=== PATIENT | female | born 1990 | race American Indian/Alaskan Native ===

== ENCOUNTER 2016-11-08 10:05 | Emergency (ER) | payer MEDICAID ==
[2016-11-08] MEDS ORDERED: ZOFRAN IV ONE (11:36)
[2016-11-08] MEDS ORDERED: NACL 0.9% 1000 ML 1,000 ML IV ONE (11:36)
[2016-11-08 11:43] LABS: Basophils % (Auto) 0.4 % (0.0-1.8); Eosinophils % (Auto) 1.5 % (0.0-4.3); Hematocrit 43.2 % (30.3-42.9); Hemoglobin 14.6 gm/dl (10.1-14.3); Mean Corpuscular HGB Conc 34 % (30-34); Mean Corpuscular Hemoglobin 31 pg (28-32); Mean Corpuscular Volume 92 fl (79-97); Platelet Count 193 K/mm3 (140-440); Red Cell Distribution Width 12.9 % (13.2-15.2); White Blood Count 5.8 K/mm3 (4.5-11.0)
[2016-11-08 11:55] LABS: Anion Gap 21 mmol/L; BUN/Creatinine Ratio 21.66; Blood Urea Nitrogen 13 mg/dL (7-17); Calcium 9.1 mg/dL (8.4-10.2); Carbon Dioxide 21 mmol/L (22-30); Chloride 98.2 mmol/L (98-107); Glucose 98 mg/dL (65-100); Potassium 3.9 mmol/L (3.6-5.0); Sodium 136 mmol/L (137-145)
[2016-11-08] MEDS ORDERED: BENTYL IM ONE (12:04)
[2016-11-08 13:10] LABS: Alanine Aminotransferase 16 units/L (7-56); Albumin 4.4 g/dL (3.9-5); Albumin/Globulin Ratio 1.1 %; Alkaline Phosphatase 49 units/L (35-129); Total Protein 8.4 g/dL (6.3-8.2)
[2016-11-08 13:20] LABS: Bilirubin,Direct < 0.2 mg/dL (0-0.2); Bilirubin,Indirect 0.2 mg/dL
[2016-11-08 13:23] LABS: Bacteria,Urine 1+ /HPF (Negative); Bilirubin,Urine NEG (Negative); Blood,Urine NEG (Negative); Ketones,Urine 80 mg/dL (Negative); Leukocyte Esterase,Urine NEG (Negative); Mucus,Urine 3+ /HPF; Nitrite,Urine NEG (Negative); Urobilinogen,Urine < 2.0 mg/dL (<2.0)
[2016-11-08 14:46] VITALS: BP 122/80
--- NOTE | 2016-11-08 21:18 | Emergency Department Report ---
Entered by FADIA DICK, acting as scribe for ANALIA LOPEZ NP. ED N/V/D HPI - General Chief complaint: Nausea/Vomiting/Diarrhea Stated complaint: DIARHHEA/VOMITTING/CHILLS/NAUSEA Time Seen by Provider: 11/08/16 11:32 Source: patient Mode of arrival: Ambulatory Limitations: No Limitations - History of Present Illness Initial comments: 26 y/o female with no significant PMHx presents to ED c/o nausea, vomiting, diarrhea beginning 2 days ago. Pt denies known sick contact or bad food exposure , as well as recent antibiotic usage. She reports one episode of emesis today and 3 episodes yesterday, as well as continuous diarrhea since yesterday. She denies abdominal pain, noting short episodes of temporary relief from nausea after emesis. Pt also reports dizziness upon standing. Her LMP was October 21, heavier but normal otherwise. Despite administering Pepto Bismol at home, she experienced no relief. Pt has no additional complaints MD complaint: nausea, vomiting, diarrhea Onset/Timin -: Gradual, days(s) Description of Diarrhea: water Associated Abdominal Pain: No Radiation: none Severity: moderate Consistency: constant Improves with: other (slight relief from nausea after vomiting) Associated Symptoms: other (dizziness when standing ) - Related Data Home Medications Medication Instructions Recorded Confirmed Last Taken Pnv95/Ferrous Fumarate/FA 1 each PO QDAY 10/11/14 11/15/14 10/11/14 09:00 [ Vitamins] 1 Previous Rx's Medication Instructions Recorded Last Taken Type Dicyclomine [Bentyl] 20 mg PO QID PRN #8 tablet 11/08/16 Unknown Rx Ondansetron [Zofran Odt] 4 mg PO Q8HR PRN #10 tab.rapdis 11/08/16 Unknown Rx Allergies Allergy/AdvReac Type Severity Reaction Status Date / Time No Known Allergies Allergy Verified 10/11/14 17:59 ED Review of Systems Comment: All other systems reviewed and negative Gastrointestinal: nausea, vomiting, diarrhea. denies: abdominal pain Genitourinary: denies: abnormal menses Neurological: other (dizziness with standing) ED Past Medical Hx - Past Medical History Previous Medical History?: Yes Hx Hypertension: Yes (PIH) Hx Congestive Heart Failure: No Hx Diabetes: No Hx Deep Vein Thrombosis: No Hx Renal Disease: No Hx Sickle Cell Disease: No Hx Seizures: No Hx Asthma: No Hx COPD: No Hx HIV: No - Surgical History Past Surgical History?: No - Social History Smoking Status: Current Every Day Smoker Substance Use Type: Alcohol, Non Opiate Pain, Other - Medications Home Medications: Home Medications Medication Instructions Recorded Confirmed Last Taken Type Pnv95/Ferrous Fumarate/FA 1 each PO QDAY 10/11/14 11/15/14 10/11/14 09:00 History [ Vitamins] 1 Dicyclomine [Bentyl] 20 mg PO QID PRN #8 tablet 11/08/16 Unknown Rx Ondansetron [Zofran Odt] 4 mg PO Q8HR PRN #10 tab.rapdis 11/08/16 Unknown Rx ED Physical Exam - General Limitations: No Limitations General appearance: alert, in no apparent distress - Head Head exam: Present: atraumatic, normocephalic, normal inspection - Eye Eye exam: Present: normal appearance, PERRL, EOMI Pupils: Present: normal accommodation - ENT ENT exam: Present: normal exam, normal orophraynx - Neck Neck exam: Present: normal inspection, full ROM - Respiratory Respiratory exam: Present: normal lung sounds bilaterally. Absent: respiratory distress, wheezes, rales, rhonchi - Cardiovascular Cardiovascular Exam: Present: regular rate, normal rhythm, normal heart sounds - GI/Abdominal GI/Abdominal exam: Present: soft, normal bowel sounds. Absent: distended, tenderness, guarding, rebound - Extremities Exam Extremities exam: Present: normal inspection, full ROM - Back Exam Back exam: Present: normal inspection, full ROM - Neurological Exam Neurological exam: Present: alert, oriented X3, normal gait - Psychiatric Psychiatric exam: Present: normal affect, normal mood - Skin Skin exam: Present: warm, dry, intact, normal color. Absent: rash ED Course Vital Signs 11/08/16 11/08/16 11/08/16 10:30 11:24 14:45 Temperature 98 F 98.6 F Pulse Rate 95 H 76 Respiratory 20 20 16 Rate Blood Pressure 119/76 Blood Pressure 122/80 [Left] O2 Sat by Pulse 100 98 100 Oximetry - Reevaluation(s) Reevaluation #1: 11/08/16 14:16 PT states she is feeling better. PT has tolerated po fluids without vomiting. PT aware of lab results. PT given strict return precautions. PT verbalizes understanding. - Pulse Oximetry Interpretation Digit-Finger Initial Pulse Oximetry Readin Actions Taken: none ED Medical Decision Making - Lab Data Result diagrams: 11/08/16 11:03 11/08/16 11:03 Lab Results 11/08/16 11/08/16 11/08/16 Range/Units 11:03 11:03 11:03 WBC 5.8 (4.5-11.0) K/mm3 RBC 4.70 (3.65-5.03) M/mm3 Hgb 14.6 H (10.1-14.3) gm/dl Hct 43.2 H (30.3-42.9) % MCV 92 (79-97) fl MCH 31 (28-32) pg MCHC 34 (30-34) % RDW 12.9 L (13.2-15.2) % Plt Count 193 (140-440) K/mm3 Lymph % (Auto) 26.1 (13.4-35.0) % [place] % (Auto) 10.4 H (0.0-7.3) % Eos % (Auto) 1.5 (0.0-4.3) % Baso % (Auto) 0.4 (0.0-1.8) % Lymph # 1.5 (1.2-5.4) K/mm3 [place] # 0.6 (0.0-0.8) K/mm3 Eos # 0.1 (0.0-0.4) K/mm3 Baso # 0.0 (0.0-0.1) K/mm3 Seg Neutrophils % 61.6 (40.0-70.0) % Seg Neutrophils # 3.6 (1.8-7.7) K/mm3 Sodium 136 L (137-145) mmol/L Potassium 3.9 (3.6-5.0) mmol/L Chloride 98.2 (98-107) mmol/L Carbon Dioxide 21 L (22-30) mmol/L Anion Gap 21 mmol/L BUN 13 (7-17) mg/dL Creatinine 0.6 L (0.7-1.2) mg/dL Estimated GFR > 60 ml/min BUN/Creatinine Ratio 21.66 % Glucose 98 (65-100) mg/dL Calcium 9.1 (8.4-10.2) mg/dL Total Bilirubin 0.40 (0.1-1.2) mg/dL Direct Bilirubin < 0.2 (0-0.2) mg/dL Indirect Bilirubin 0.2 mg/dL AST 25 (5-40) units/L ALT 16 (7-56) units/L Alkaline Phosphatase 49 (35-129) units/L Total Protein 8.4 H (6.3-8.2) g/dL Albumin 4.4 (3.9-5) g/dL Albumin/Globulin Ratio 1.1 % Urine Color (Yellow) Urine Turbidity (Clear) Urine pH (5.0-7.0) Ur Specific [place] (1.003-1.030) Urine Protein (Negative) mg/dL Urine Glucose (UA) (Negative) mg/dL Urine Ketones (Negative) mg/dL Urine Blood (Negative) Urine Nitrite (Negative) Urine Bilirubin (Negative) Urine Urobilinogen (<2.0) mg/dL Ur Leukocyte Esterase (Negative) Urine WBC (Auto) (0.0-6.0) /HPF Urine RBC (Auto) (0.0-6.0) /HPF U Epithel Cells (Auto) (0-13.0) /HPF Urine Bacteria (Auto) (Negative) /HPF Hyaline Casts /LPF Urine Mucus /HPF Urine HCG, Qual (Negative) 11/08/16 Range/Units 13:04 WBC (4.5-11.0) K/mm3 RBC (3.65-5.03) M/mm3 Hgb (10.1-14.3) gm/dl Hct (30.3-42.9) % MCV (79-97) fl MCH (28-32) pg MCHC (30-34) % RDW (13.2-15.2) % Plt Count (140-440) K/mm3 Lymph % (Auto) (13.4-35.0) % [place] % (Auto) (0.0-7.3) % Eos % (Auto) (0.0-4.3) % Baso % (Auto) (0.0-1.8) % Lymph # (1.2-5.4) K/mm3 [place] # (0.0-0.8) K/mm3 Eos # (0.0-0.4) K/mm3 Baso # (0.0-0.1) K/mm3 Seg Neutrophils % (40.0-70.0) % Seg Neutrophils # (1.8-7.7) K/mm3 Sodium (137-145) mmol/L Potassium (3.6-5.0) mmol/L Chloride (98-107) mmol/L Carbon Dioxide (22-30) mmol/L Anion Gap mmol/L BUN (7-17) mg/dL Creatinine (0.7-1.2) mg/dL Estimated GFR ml/min BUN/Creatinine Ratio % Glucose (65-100) mg/dL Calcium (8.4-10.2) mg/dL Total Bilirubin (0.1-1.2) mg/dL Direct Bilirubin (0-0.2) mg/dL Indirect Bilirubin mg/dL AST (5-40) units/L ALT (7-56) units/L Alkaline Phosphatase (35-129) units/L Total Protein (6.3-8.2) g/dL Albumin (3.9-5) g/dL Albumin/Globulin Ratio % Urine Color Yellow (Yellow) Urine Turbidity Clear (Clear) Urine pH 5.0 (5.0-7.0) Ur Specific [place] 1.033 H (1.003-1.030) Urine Protein 100 mg/dl (Negative) mg/dL Urine Glucose (UA) Neg (Negative) mg/dL Urine Ketones 80 (Negative) mg/dL Urine Blood Neg (Negative) Urine Nitrite Neg (Negative) Urine Bilirubin Neg (Negative) Urine Urobilinogen < 2.0 (<2.0) mg/dL Ur Leukocyte Esterase Neg (Negative) Urine WBC (Auto) 3.0 (0.0-6.0) /HPF Urine RBC (Auto) 2.0 (0.0-6.0) /HPF U Epithel Cells (Auto) 13.0 (0-13.0) /HPF Urine Bacteria (Auto) 1+ (Negative) /HPF Hyaline Casts 1 /LPF Urine Mucus 3+ /HPF Urine HCG, Qual Negative (Negative) - Medical Decision Making PT with 3 days of n/v/d. Diarrhea and vomiting have decreased today. PT has been able to tolerate po fluids. Orthostatic VS were checked, by doubler helper and shown to me pt was not orthostatic. - Differential Diagnosis n/v/d, age, dehydration, electrolye abnormality Critical Care Time: No ED Disposition Clinical Impression: Nausea vomiting and diarrhea Disposition: DISCHARGED TO HOME OR SELFCARE Is pt being admited?: No Does the pt Need Aspirin: No Condition: Stable Instructions: Clear Liquid Diet (ED), Gastroenteritis (ED), Acute Nausea and Vomiting (ED) Prescriptions: Dicyclomine [Bentyl] 20 mg PO QID PRN #8 tablet PRN Reason: Diarrhea Ondansetron [Zofran Odt] 4 mg PO Q8HR PRN #10 tab.rapdis PRN Reason: Nausea Referrals: PRIMARY CARE, [Primary Care Provider] - 3-5 Days EVE FOWLER MD [Staff Physician] - 3-5 Days [facility] [Outside] - 3-5 Days [facility] [Outside] - 3-5 Days Forms: Work/School Release Form(ED) Time of Disposition: 14:24 This documentation as recorded by the KAPIL vallejo AHSAN,accurately reflects the service I personally performed and the decisions made by ,ANALIA LOPEZ, [employer].
== END 2016-11-08 14:45 | disposition home or self-care (01) ==
LOC: ED 10:05
DX: R11.2 Nausea with vomiting, unspecified (principal); R19.7 Diarrhea, unspecified; I10 Essential (primary) hypertension; F17.200 Nicotine dependence, unspecified, uncomplicated
CPT/HCPCS: 36415; 80048; 80074; 81001; 81025; 82962; 85025; 96361; 96372; 96374; 99283; J0500; J2405; J7030

== ENCOUNTER 2017-02-02 05:55 | Emergency (ER) | payer SELFPAY ==
[2017-02-02 06:52] LABS: Basophils % (Auto) 0.3 % (0.0-1.8); Eosinophils % (Auto) 1.1 % (0.0-4.3); Hematocrit 37.2 % (30.3-42.9); Hemoglobin 12.7 gm/dl (10.1-14.3); Mean Corpuscular HGB Conc 34 % (30-34); Mean Corpuscular Hemoglobin 31 pg (28-32); Mean Corpuscular Volume 91 fl (79-97); Platelet Count 203 K/mm3 (140-440); Red Blood Count 4.09 M/mm3 (3.65-5.03); Red Cell Distribution Width 12.7 % (13.2-15.2); White Blood Count 6.7 K/mm3 (4.5-11.0)
[2017-02-02 07:34] LABS: Bilirubin,Urine NEG (Negative); Blood,Urine MOD (Negative); Ketones,Urine NEG (Negative); Leukocyte Esterase,Urine NEG (Negative); Nitrite,Urine NEG (Negative); Protein,Urine <15 mg/dL mg/dL (Negative); Urobilinogen,Urine < 2.0 mg/dL (<2.0)
--- NOTE | 2017-02-02 10:36 | Emergency Department Report ---
ED Female HPI - General Chief complaint: Vaginal Bleeding Stated complaint: BLEEDING/5WKS Time Seen by Provider: 02/02/17 10:30 Source: patient, RN notes reviewed Mode of arrival: Ambulatory Limitations: No Limitations - History of Present Illness Initial comments: This is a 27-year-old female. She is previously unknown to me. She reports that she is 3, para 2. Last menstrual period was in December. She reports a positive home test, and a subsequent presents with [facility], and was also told that she had a positive urine test. The patient presents to the ER with lower abdominal cramping and vaginal bleeding. There is no headache, neck pain, chest pain, shortness of breath, nausea, vomiting, diarrhea, she denies irritative and obstructive urinary symptoms. She reports a cramping and bleeding started this morning. The cramping is sharp. It increases with palpation and decreases with rest. It does not radiate anywhere. MD Complaint: vaginal bleeding, pelvic pain -: Gradual Location: suprapubic Quality: cramping Consistency: intermittent Improves with: other (as per history of present illness) Worsens with: other (as per history of present illness) Associated Symptoms: vaginal bleeding. denies: dysuria - Related Data Sexually active: Yes Home Medications Medication Instructions Recorded Confirmed Last Taken No Known Home Medications [No 02/02/17 02/02/17 Unknown Reported Home Medications] Allergies Allergy/AdvReac Type Severity Reaction Status Date / Time No Known Allergies Allergy Verified 10/11/14 17:59 ED Review of Systems ROS: Stated complaint: BLEEDING/5WKS Other details as noted in HPI Constitutional: denies: fever Eyes: denies: eye discharge ENT: denies: epistaxis Respiratory: denies: cough Cardiovascular: denies: chest pain Gastrointestinal: denies: vomiting Genitourinary: as per HPI, abnormal menses Musculoskeletal: denies: back pain Skin: denies: lesions Neurological: denies: weakness ED Past Medical Hx - Past Medical History Previous Medical History?: Yes Hx Hypertension: Yes (with last preg) Hx Congestive Heart Failure: No Hx Diabetes: No Hx Deep Vein Thrombosis: No Hx Renal Disease: No Hx Sickle Cell Disease: No Hx Seizures: No Hx Asthma: No Hx COPD: No Hx HIV: No - Surgical History Past Surgical History?: No - Social History Smoking Status: Never Smoker Substance Use Type: None - Medications Home Medications: Home Medications Medication Instructions Recorded Confirmed Last Taken Type No Known Home Medications [No 02/02/17 02/02/17 Unknown History Reported Home Medications] ED Physical Exam - General Limitations: No Limitations General appearance: alert, in no apparent distress - Head Head exam: Present: atraumatic, normocephalic - Eye Eye exam: Present: normal appearance, EOMI. Absent: nystagmus - ENT ENT exam: Present: normal exam, normal orophraynx, mucous membranes moist, normal external ear exam - Neck Neck exam: Present: normal inspection, full ROM. Absent: tenderness, meningismus - Respiratory Respiratory exam: Present: normal lung sounds bilaterally. Absent: respiratory distress, wheezes, rales, rhonchi, stridor, chest wall tenderness, accessory muscle use, decreased breath sounds, prolonged expiratory - Cardiovascular Cardiovascular Exam: Present: regular rate, normal rhythm, normal heart sounds. Absent: bradycardia, tachycardia, systolic murmur, diastolic murmur, rubs, gallop - GI/Abdominal GI/Abdominal exam: Present: soft, normal bowel sounds. Absent: distended, tenderness, guarding, rebound, rigid, pulsatile mass - External exam: Present: normal external exam Speculum exam: Present: normal speculum exam, vaginal bleeding. Absent: cervical discharge Bi-manual exam: Present: normal bi-manual exam, other (escorted by nurse Morelia Massey). Absent: cervical motion tendernes, adnexal tenderness, adnexal mass - Extremities Exam Extremities exam: Present: normal inspection, full ROM, normal capillary refill. Absent: tenderness, pedal edema, joint swelling, calf tenderness - Back Exam Back exam: Present: normal inspection, full ROM. Absent: tenderness, CVA tenderness (R), CVA tenderness (L), muscle spasm, paraspinal tenderness, vertebral tenderness - Neurological Exam Neurological exam: Present: alert, oriented X3, normal gait, other (Extraocular movements intact. Tongue midline. No facial droop. Facial sensation intact to light touch in the V1, V2, V3 distribution bilaterally. 5 and 5 strength in 4 extremities.. Sensation is intact to light touch in 4 extremities.). Absent : motor sensory deficit - Psychiatric Psychiatric exam: Present: normal affect, normal mood - Skin Skin exam: Present: warm, dry, intact, normal color. Absent: rash ED Course Vital Signs 02/02/17 02/02/17 02/02/17 06:23 09:58 10:04 Temperature 97.9 F Pulse Rate 88 88 Respiratory 18 16 16 Rate Blood Pressure 128/84 Blood Pressure 118/78 [Left] O2 Sat by Pulse 100 100 100 Oximetry 02/02/17 12:29 Temperature Pulse Rate 65 Respiratory 18 Rate Blood Pressure Blood Pressure 120/68 [Left] O2 Sat by Pulse 100 Oximetry - Reevaluation(s) Reevaluation #1: 02/02/17 12:24 patient feels improved. Pelvic ultrasound negative for an intra uterine as expected. Clinical picture consistent with miscarriage. Patient is instructed to follow up with outpatient gynecology. Given her history, ultrasound findings, quantitative hCG, patient is suitable to follow- up as an outpatient, and I dont believe she needs to come back in 2 days for repeat ultrasound or hCG. 02/05/17 05:54 ED Medical Decision Making - Lab Data Result diagrams: 02/02/17 06:31 Vital Signs 02/02/17 02/02/17 02/02/17 06:23 09:58 10:04 Temperature 97.9 F Pulse Rate 88 88 Respiratory 18 16 16 Rate Blood Pressure 128/84 Blood Pressure 118/78 [Left] O2 Sat by Pulse 100 100 100 Oximetry Lab Results 02/02/17 02/02/17 02/02/17 Range/Units 06:31 06:31 06:31 WBC 6.7 (4.5-11.0) K/mm3 RBC 4.09 (3.65-5.03) M/mm3 Hgb 12.7 (10.1-14.3) gm/dl Hct 37.2 (30.3-42.9) % MCV 91 (79-97) fl MCH 31 (28-32) pg MCHC 34 (30-34) % RDW 12.7 L (13.2-15.2) % Plt Count 203 (140-440) K/mm3 Lymph % (Auto) 31.0 (13.4-35.0) % [place] % (Auto) 5.4 (0.0-7.3) % Eos % (Auto) 1.1 (0.0-4.3) % Baso % (Auto) 0.3 (0.0-1.8) % Lymph # 2.1 (1.2-5.4) K/mm3 [place] # 0.4 (0.0-0.8) K/mm3 Eos # 0.1 (0.0-0.4) K/mm3 Baso # 0.0 (0.0-0.1) K/mm3 Seg Neutrophils % 62.2 (40.0-70.0) % Seg Neutrophils # 4.2 (1.8-7.7) K/mm3 HCG, Quant 1.40 (0-4) mIU/mL Urine Color (Yellow) Urine Turbidity (Clear) Urine pH (5.0-7.0) Ur Specific [place] (1.003-1.030) Urine Protein (Negative) mg/dL Urine Glucose (UA) (Negative) mg/dL Urine Ketones (Negative) mg/dL Urine Blood (Negative) Urine Nitrite (Negative) Urine Bilirubin (Negative) Urine Urobilinogen (<2.0) mg/dL Ur Leukocyte Esterase (Negative) Urine WBC (Auto) (0.0-6.0) /HPF Urine RBC (Auto) (0.0-6.0) /HPF U Epithel Cells (Auto) (0-13.0) /HPF Blood Type A POSITIVE Antibody Screen TNR PRO Antibody Screen Negative 02/02/17 Range/Units 07:18 WBC (4.5-11.0) K/mm3 RBC (3.65-5.03) M/mm3 Hgb (10.1-14.3) gm/dl Hct (30.3-42.9) % MCV (79-97) fl MCH (28-32) pg MCHC (30-34) % RDW (13.2-15.2) % Plt Count (140-440) K/mm3 Lymph % (Auto) (13.4-35.0) % [place] % (Auto) (0.0-7.3) % Eos % (Auto) (0.0-4.3) % Baso % (Auto) (0.0-1.8) % Lymph # (1.2-5.4) K/mm3 [place] # (0.0-0.8) K/mm3 Eos # (0.0-0.4) K/mm3 Baso # (0.0-0.1) K/mm3 Seg Neutrophils % (40.0-70.0) % Seg Neutrophils # (1.8-7.7) K/mm3 HCG, Quant (0-4) mIU/mL Urine Color Yellow (Yellow) Urine Turbidity Clear (Clear) Urine pH 7.0 (5.0-7.0) Ur Specific [place] 1.013 (1.003-1.030) Urine Protein <15 mg/dl (Negative) mg/dL Urine Glucose (UA) Neg (Negative) mg/dL Urine Ketones Neg (Negative) mg/dL Urine Blood Mod (Negative) Urine Nitrite Neg (Negative) Urine Bilirubin Neg (Negative) Urine Urobilinogen < 2.0 (<2.0) mg/dL Ur Leukocyte Esterase Neg (Negative) Urine WBC (Auto) 1.0 (0.0-6.0) /HPF Urine RBC (Auto) 24.0 (0.0-6.0) /HPF U Epithel Cells (Auto) < 1.0 (0-13.0) /HPF Blood Type Antibody Screen PRO Antibody Screen - Radiology Data Radiology results: pending, report reviewed Transvaginal ultrasound demonstrates no evidence of intrauterine . No evidence of ovarian torsion is noted. The endometrial stripe is 8 mm. This most likely represents a spontaneous . There is a 1.7 cm right-sided ovarian cyst which is most consistent with a corpus luteum cyst. - Medical Decision Making Differential diagnosis: Miscarriage, retained products of conception, menstruation Assessment and plan: 27-year-old female with reported to outpatient positive test, current quantitative hCG of 1.4, with no abdominal tenderness, rebound or guarding, she is Rh+, denies irritative and obstructive urinary symptoms, and has a benign gynecologic abdominal examination. She most likely had a miscarriage. She is afebrile, with reassuring vital signs. highly doubt acute surgical disease, we will obtain pelvic ultrasound to exclude retained products of conception. Critical care attestation.: If time is entered above; I have spent that time in minutes in the direct care of this critically ill patient, excluding procedure time. ED Disposition Clinical Impression: Vaginal bleeding Disposition: TO HOME OR SELFCARE Is pt being admited?: No Does the pt Need Aspirin: No Condition: Stable Instructions: Spontaneous Miscarriage (ED) Additional Instructions: Rest and avoid heavy lifting. Avoid strenuous physical activity. Take Tylenol every 4 hours, and ibuprofen every 6 hours with food as needed for pain. Cultures were sent today, results will be available in the next 3-5 days. Follow-up with her managing jeweler within the next 7-10 days. Do not engage in sexual activity until cleared by your private managing jeweler. Symptoms most likely coming from complete miscarriage. Return to the ER right away with new pain, worsened pain, migration of pain, bleeding more than 2 pads per hour, dizziness, lightheadedness, chest pain, shortness of breath, confusion , intractable nausea or vomiting, inability to tolerate liquid feeds. Referrals: PRIMARY CARE, [Primary Care Provider] - 3-5 Days [facility] [Provider Group] - 3-5 Days Forms: Work/School Release Form(ED)
[2017-02-02] MEDS ORDERED: TYLENOL PO ONE (10:42)
--- NOTE | 2017-02-02 12:21 | Ultrasound Report ---
ULTRASOUND PELVIC DUPLEX DOPPLER COMPLETE ULTRASOUND TRANSVAGINAL HISTORY: Pelvic pain, bleeding, positive test. TECHNIQUE: Transabdominal and transvaginal ultrasound with color and spectral doppler interrogation. The uterus is anteverted and measures 11 x 5 x 6 cm. No intrauterine is identified. The endometrial stripe measures 8 mm. The cervix is closed. No uterine mass is appreciated. The right ovary measures 3.5 x 1.8 x 4.7 cm. A 1.7 cm slightly complex cyst is identified in the right ovary which probably represents a corpus luteum cyst. The left ovary is unremarkable and measures 3.1 x 1.6 x 2.7 cm. Spectral Doppler waveforms demonstrate arterial flow to both ovaries. IMPRESSION: No intrauterine is identified. The endometrial stripe measures 8 mm. This probably represents a spontaneous . 1.7 cm right ovarian cyst which is most consistent with a corpus luteum cyst. No definite ectopic is appreciated although it is not entirely excluded at this time. Continued followup is recommended.
[2017-02-02 12:30] VITALS: BP 120/68
== END 2017-02-02 12:30 | disposition home or self-care (01) ==
LOC: ED 05:55
DX: O20.9 Hemorrhage in early pregnancy, unspecified (principal); Z3A.01 Less than 8 weeks gestation of pregnancy
CPT/HCPCS: 36415; 76830; 81001; 84702; 85025; 86850; 86900; 86901; 87591; 93975

== ENCOUNTER 2017-03-26 22:23 | Emergency (ER) | payer OTHER, MEDICAID ==
[2017-03-26] MEDS ORDERED: TORADOL IV ONE (23:06)
[2017-03-26] MEDS ORDERED: NACL 0.9% 1000 ML 1,000 ML IV ONE (23:06)
[2017-03-26 23:38] LABS: Basophils % (Auto) 0.4 % (0.0-1.8); Eosinophils % (Auto) 1.3 % (0.0-4.3); Hematocrit 38.2 % (30.3-42.9); Hemoglobin 12.8 gm/dl (10.1-14.3); Mean Corpuscular HGB Conc 34 % (30-34); Mean Corpuscular Hemoglobin 31 pg (28-32); Mean Corpuscular Volume 91 fl (79-97); Platelet Count 209 K/mm3 (140-440); Red Blood Count 4.18 M/mm3 (3.65-5.03); Red Cell Distribution Width 12.9 % (13.2-15.2); White Blood Count 9.1 K/mm3 (4.5-11.0)
[2017-03-26 23:57] LABS: Anion Gap 18 mmol/L; Blood Urea Nitrogen 9 mg/dL (7-17); Carbon Dioxide 25 mmol/L (22-30); Chloride 97.9 mmol/L (98-107); Glucose 94 mg/dL (65-100); Potassium 3.9 mmol/L (3.6-5.0); Sodium 137 mmol/L (137-145)
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
[2017-03-27] MEDS ORDERED: MORPHINE IV ONE (02:27)
[2017-03-27] MEDS ORDERED: MORPHINE ONE (02:32)
[2017-03-27] MEDS ORDERED: ZOFRAN ONE (02:32)
[2017-03-27] MEDS: ZOFRAN IV ONE ×2 (02:41→04:38)
[2017-03-27 02:56] VITALS: BP 110/60
== END 2017-03-27 04:00 | disposition home or self-care (01) ==
LOC: ED 22:23
DX: R55 Syncope and collapse (principal); R42 Dizziness and giddiness; M79.1 Myalgia; V49.49XA Driver injured in collision with other motor vehicles in traffic accident, initial encounter; X58.XXXA Exposure to other specified factors, initial encounter; Y93.9 Activity, unspecified; Y92.9 Unspecified place or not applicable; Y99.9 Unspecified external cause status
CPT/HCPCS: 36415; 70450; 72125; 74177; 80048; 84702; 85025; 93005; 93010; 96361; 96374; 96375; 99284; J1885; J2270; Q9967; J2405

== ENCOUNTER 2017-05-27 18:11 | Emergency (ER) | payer MEDICAID, OTHER ==
[2017-05-27 19:17] LABS: Bilirubin,Urine NEG (Negative); Blood,Urine NEG (Negative); Ketones,Urine NEG (Negative); Leukocyte Esterase,Urine SM (Negative); Nitrite,Urine NEG (Negative); Protein,Urine <15 mg/dL mg/dL (Negative)
[2017-05-27 19:17] LABS: Basophils % (Auto) 0.4 % (0.0-1.8); Eosinophils % (Auto) 1.3 % (0.0-4.3); Hematocrit 34.4 % (30.3-42.9); Hemoglobin 12.1 gm/dl (10.1-14.3); Mean Corpuscular HGB Conc 35 % (30-34); Mean Corpuscular Hemoglobin 32 pg (28-32); Mean Corpuscular Volume 92 fl (79-97); Platelet Count 205 K/mm3 (140-440); Red Blood Count 3.76 M/mm3 (3.65-5.03); Red Cell Distribution Width 12.7 % (13.2-15.2); White Blood Count 11.5 K/mm3 (4.5-11.0)
[2017-05-27 19:31] LABS: Anion Gap 16 mmol/L; BUN/Creatinine Ratio 18; Blood Urea Nitrogen 9 mg/dL (7-17); Calcium 8.9 mg/dL (8.4-10.2); Carbon Dioxide 24 mmol/L (22-30); Chloride 99.4 mmol/L (98-107); Glucose 114 mg/dL (65-100); Potassium 3.7 mmol/L (3.6-5.0); Sodium 136 mmol/L (137-145)
[2017-05-27] MEDS ORDERED: NACL 0.9% 1000 ML 1,000 ML IV ONE (21:16)
--- NOTE | 2017-05-27 22:12 | Emergency Department Report ---
ED Syncope HPI - General Chief Complaint: Headache Stated Complaint: PREG, VERTIGO Time Seen by Provider: 05/27/17 20:27 Source: patient, family () - History of Present Illness Initial Comments: 27 YO FEMALE THAT IS 10 WEEKS WITH A H/O VERTIGO WHO C/O SYNCOPE TODAY AFTER GETTING UP SUDDENLY AND FEELING DT DENIES NAUSEA, VOMITING BUT DIZZY. PT IS NOT HAVING CHEST PAIN, NOT SOB ,NO BACK, NO ABDOMINAL PAIN. Timing/Prior Episodes: no prior history Precipitating Factors: Negative: nausea, pain Context: standing, other (BECAME DIZZY) Loss of Consciousness: brief (seconds) Current Symptoms: back to normal - Related Data Allergies/Adverse Reactions: Allergies No Known Allergies Allergy (Verified 10/11/14 17:59) Home Medications: Ambulatory Orders Ibuprofen [Motrin] 800 mg PO Q8HR PRN #30 tablet 03/27/17 traMADol [Ultram 50 MG tab] 50 mg PO Q6HR PRN #20 tablet 03/27/17 Nitrofurantoin Monohyd/M-Cryst [Macrobid 100 mg Capsule] 100 mg PO BID #14 capsule 05/27/17 ED Review of Systems ROS: Stated complaint: PREG, VERTIGO Other details as noted in HPI Constitutional: denies: chills, fever Eyes: denies: eye pain, eye discharge, vision change ENT: denies: ear pain, throat pain Respiratory: denies: cough, shortness of breath, wheezing Cardiovascular: denies: chest pain, palpitations Endocrine: no symptoms reported Gastrointestinal: denies: abdominal pain, nausea, diarrhea Genitourinary: denies: urgency, dysuria, discharge Musculoskeletal: denies: back pain, joint swelling, arthralgia Skin: denies: rash, lesions Neurological: headache (FRONTAL FOREHEAD), vertigo, other (DIZZY). denies: weakness, paresthesias Psychiatric: denies: anxiety, depression Hematological/Lymphatic: denies: easy bleeding, easy bruising ED Past Medical Hx - Past Medical History Previous Medical History?: Yes Hx Hypertension: Yes (with last preg) Hx Congestive Heart Failure: No Hx Diabetes: No Hx Deep Vein Thrombosis: No Hx Renal Disease: No Hx Sickle Cell Disease: No Hx Seizures: No Hx Asthma: No Hx COPD: No Hx HIV: No Additional medical history: Vertigo, Vaginal delivery x 2 - Surgical History Past Surgical History?: Yes Additional Surgical History: - Family History Family history: no significant - Social History Smoking Status: Never Smoker Substance Use Type: None - Medications Home Medications: Home Medications Medication Instructions Recorded Confirmed Last Taken Type Ibuprofen [Motrin] 800 mg PO Q8HR PRN #30 tablet 03/27/17 Unknown Rx traMADol [Ultram 50 MG tab] 50 mg PO Q6HR PRN #20 tablet 03/27/17 Unknown Rx Nitrofurantoin Monohyd/M-Cryst 100 mg PO BID #14 capsule 05/27/17 Unknown Rx [Macrobid 100 mg Capsule] ED Physical Exam - General Limitations: No Limitations General appearance: alert, in no apparent distress - Head Head exam: Present: atraumatic, normocephalic - Eye Eye exam: Present: normal appearance - ENT ENT exam: Present: mucous membranes moist - Neck Neck exam: Present: normal inspection, full ROM - Respiratory Respiratory exam: Present: normal lung sounds bilaterally. Absent: respiratory distress, wheezes, rales - Cardiovascular Cardiovascular Exam: Present: regular rate, normal rhythm, normal heart sounds. Absent: bradycardia, tachycardia, irregular rhythm, systolic murmur, diastolic murmur, rubs, gallop - GI/Abdominal GI/Abdominal exam: Present: soft, normal bowel sounds, other (GRAVID TO 10 WEEKS) - Rectal Rectal exam: Present: deferred - Extremities Exam Extremities exam: Present: normal inspection, full ROM - Back Exam Back exam: Present: normal inspection, full ROM - Neurological Exam Neurological exam: Present: alert, oriented X3, CN II-XII intact - Psychiatric Psychiatric exam: Present: normal affect, normal mood - Skin Skin exam: Present: warm, dry, intact, normal color. Absent: rash ED Course Vital Signs 05/27/17 05/27/17 05/27/17 18:44 19:40 19:53 Temperature 99.2 F Pulse Rate 104 H Respiratory 20 18 Rate Blood Pressure 132/87 122/68 O2 Sat by Pulse 99 99 Oximetry 05/27/17 05/27/17 05/27/17 20:00 20:31 21:00 Temperature Pulse Rate Respiratory Rate Blood Pressure 110/70 107/61 O2 Sat by Pulse 100 100 98 Oximetry 05/27/17 22:57 Temperature Pulse Rate Respiratory 18 Rate Blood Pressure O2 Sat by Pulse Oximetry ED Medical Decision Making - Lab Data Result diagrams: 05/27/17 19:02 05/27/17 19:02 Critical care attestation.: If time is entered above; I have spent that time in minutes in the direct care of this critically ill patient, excluding procedure time. ED Disposition Clinical Impression: Syncope Qualifiers: Syncope type: vasovagal syncope Qualified Code(s): R55 - Syncope and collapse UTI (urinary tract infection) Qualifiers: Urinary tract infection type: acute cystitis Hematuria presence: without hematuria Qualified Code(s): N30.00 - Acute cystitis without hematuria Headache Qualifiers: Headache type: unspecified Headache chronicity pattern: acute headache Intractability: not intractable Qualified Code(s): R51 - Headache Disposition: DC- TO HOME OR SELFCARE Is pt being admited?: No Does the pt Need Aspirin: No Condition: Stable Instructions: Urinary Tract Infection in Women (ED), Syncope (ED) Prescriptions: Nitrofurantoin Monohyd/M-Cryst [Macrobid 100 mg Capsule] 100 mg PO BID #14 capsule Referrals: PRIMARY CARE, [Primary Care Provider] - 3-5 Days
[2017-05-27] MEDS ORDERED: TYLENOL PO ONE (22:31)
[2017-05-28 01:24] VITALS: BP 106/57
== END 2017-05-28 01:22 | disposition home or self-care (01) ==
LOC: ED 18:11
DX: N30.00 Acute cystitis without hematuria (principal); R55 Syncope and collapse; R51 Headache
CPT/HCPCS: 36415; 80048; 81001; 85025; 96360; 99284; J7030

== ENCOUNTER 2017-06-08 07:29 | Emergency (ER) | payer MEDICAID ==
[2017-06-08 07:43] VITALS: BP 122/81
[2017-06-08 08:08] LABS: Basophils % (Auto) 0.5 % (0.0-1.8); Eosinophils % (Auto) 1.9 % (0.0-4.3); Hemoglobin 12.9 gm/dl (10.1-14.3); Mean Corpuscular HGB Conc 34 % (30-34); Mean Corpuscular Hemoglobin 31 pg (28-32); Mean Corpuscular Volume 90 fl (79-97); Platelet Count 202 K/mm3 (140-440); Red Blood Count 4.22 M/mm3 (3.65-5.03); Red Cell Distribution Width 12.9 % (13.2-15.2); White Blood Count 10.1 K/mm3 (4.5-11.0)
--- NOTE | 2017-06-08 10:25 | Ultrasound Report ---
Transvaginal and transabdominal OB ultrasound. History: Pelvic pain and vaginal bleeding. Findings: A single intrauterine is identified. The crown-rump length measures 2.1 cm. There is no cardiac activity. There is no evidence of subchorionic hemorrhage. A 2.1 cm in diameter cyst is seen in the right ovary. Minimal free fluid is seen in the right adnexa. Impression: Sonographic evidence of demise. The size of the pole would indicate 8 and one half weeks gestational age. 2. 2.1 cm right ovarian cyst.
--- NOTE | 2017-06-08 10:32 | Emergency Department Report ---
Chief Complaint: OB/Uterine Contractions Stated Complaint: ABDOMINAL PAIN - HPI History of Present Illness: This is a 27-year-old female nontoxic, well nourished in appearance, no acute signs of distress presents to the ED with c/o of abd cramping and vaginal bleeding and clots since this morning 0500. Patient stated she is 12 weeks . Patient stated had a GENERAL [employer]OOK[employer]EE[employer] follow-up with normal exam. Denies any chest pain, shortness of breath, chest pain, numbness, tingling, nausea, vomiting, fever or chills. - Exam Vital Signs: Vital Signs 06/08/17 07:34 Temperature 98.6 F Pulse Rate 92 H Blood Pressure 122/81 O2 Sat by Pulse 99 Oximetry MSE screening note: Focused history and physical exam performed. Due to findings the following was ordered: 1- This initial assessment/diagnostic orders/clinical plan/ treatment(s) is/are subject to change based on pt's health status, clinical progression and re- assessment by fellow clinical providers in the ED. Further treatment and workup at subsequent clinical provers discretion. Patient/guardians urged not to elope from ED as their condition may be serious if not clinically assessed and managed. 2-CBC, BMP, UA, Amauri serum 3-US OB/Transvaginal 4-type/screen ED Medical Decision Making - Lab Data Result diagrams: 06/08/17 07:48 ED Disposition for MSE Condition: Stable Referrals: MONISHA MIMS MD [Other] - 3-5 Days
[2017-06-08 10:48] LABS: Bilirubin,Urine NEG (Negative); Blood,Urine MOD (Negative); Ketones,Urine TR mg/dL (Negative); Leukocyte Esterase,Urine NEG (Negative); Mucus,Urine FEW /HPF; Nitrite,Urine NEG (Negative); Protein,Urine <15 mg/dL mg/dL (Negative); Urobilinogen,Urine < 2.0 mg/dL (<2.0)
[2017-06-08 10:54] LABS: Anion Gap 19 mmol/L; BUN/Creatinine Ratio 18; Blood Urea Nitrogen 9 mg/dL (7-17); Calcium 9.1 mg/dL (8.4-10.2); Carbon Dioxide 25 mmol/L (22-30); Chloride 96.9 mmol/L (98-107); Glucose 89 mg/dL (65-100); Potassium 3.9 mmol/L (3.6-5.0); Sodium 137 mmol/L (137-145)
[2017-06-08] MEDS ORDERED: NORCO 5/325 PO ONE (13:07)
--- NOTE | 2017-06-08 13:14 | Emergency Department Report ---
HPI - General Chief Complaint: OB/Uterine Contractions Time Seen by Provider: 06/08/17 12:59 - HPI HPI: Room 8 The patient is a 27-year-old female presenting with a chief complaint of vaginal bleeding. The patient states this morning at 05:00 rest and she developed vaginal bleeding and states she also passed blood clots. Patient denies passage of tissue at that time. The patient states she's had a constant cramping lower abdominal pain. The patient came to the ED today had an ultrasound performed prior to my interview. The patient now states approximately 10 minutes ago she passed tissue in the toilet. Patient denies any history of fever. Patient gives her pain a score greater than 10/10 Location: Pelvis Duration: [See above] Quality: Cramping Severity: Greater than 10/10 Modifying factors: [see above] Context: [see above] Mode of transportation: [not driving] ED Past Medical Hx - Past Medical History Previous Medical History?: Yes Hx Hypertension: Yes (with last preg) Additional medical history: Vertigo, Vaginal delivery x 2 - Surgical History Past Surgical History?: Yes Additional Surgical History: - Family History Family history: no significant - Social History Smoking Status: Never Smoker Substance Use Type: None - Medications Home Medications: Home Medications Medication Instructions Recorded Confirmed Last Taken Type Ibuprofen [Motrin] 800 mg PO Q8HR PRN #30 tablet 03/27/17 Unknown Rx traMADol [Ultram 50 MG tab] 50 mg PO Q6HR PRN #20 tablet 03/27/17 Unknown Rx Nitrofurantoin Monohyd/M-Cryst 100 mg PO BID #14 capsule 05/27/17 Unknown Rx [Macrobid 100 mg Capsule] HYDROcodone/APAP 5-325 [[place] 1 - 2 each PO Q6HR PRN #10 tablet 06/08/17 Unknown Rx 5/325] Ibuprofen [Motrin 800 MG tab] 800 mg PO Q8HR PRN #20 tablet 06/08/17 Unknown Rx ED Review of Systems ROS: Stated complaint: ABDOMINAL PAIN Other details as noted in HPI Constitutional: denies: fever Gastrointestinal: abdominal pain Genitourinary: abnormal menses, other Physical Exam - Physical Exam Vital Signs: Vital Signs 06/08/17 07:34 Temperature 98.6 F Pulse Rate 92 H Blood Pressure 122/81 O2 Sat by Pulse 99 Oximetry Physical Exam: GENERAL: The patient is well-developed well-nourished female lying on stretcher not appearing to be in acute distress. [] HEENT: Normocephalic. Atraumatic. Extraocular motions are intact. Patient has moist mucous membranes. NECK: Supple. Trachea midline CHEST/LUNGS: Clear to auscultation. There is no respiratory distress noted. HEART/CARDIOVASCULAR: Regular. There is no tachycardia. There is no gallop rub or murmur. ABDOMEN: Abdomen is soft, with small discomfort to palpation but no rebound or guarding. Patient has normal bowel sounds. There is no abdominal distention. SKIN: There is no rash. There is no edema. There is no diaphoresis. NEURO: The patient is awake, alert, and oriented. The patient is cooperative. The patient has normal speech MUSCULOSKELETAL: There is no evidence of acute injury. PELVIC: Moderate amount of dark red blood in the vaginal vault ED Course Vital Signs 06/08/17 07:34 Temperature 98.6 F Pulse Rate 92 H Blood Pressure 122/81 O2 Sat by Pulse 99 Oximetry - Consultations Consultation #1: 06/08/17 15:37 Life cycle [employer] paged 06/08/17 15:[address] Seals- recommends administering methargen 0.2 g IM 1 in the ED and the patient will be discharged to follow-up in the office this week. ED Medical Decision Making - Lab Data Result diagrams: 06/08/17 07:48 06/08/17 10:20 Laboratory Tests 06/08/17 06/08/17 06/08/17 07:48 07:48 07:48 WBC 10.1 RBC 4.22 Hgb 12.9 Hct 38.0 MCV 90 MCH 31 MCHC 34 RDW 12.9 L Plt Count 202 Lymph % (Auto) 19.1 [place] % (Auto) 5.7 Eos % (Auto) 1.9 Baso % (Auto) 0.5 Lymph # 1.9 [place] # 0.6 Eos # 0.2 Baso # 0.0 Seg Neutrophils % 72.8 H Seg Neutrophils # 7.4 Sodium Potassium Chloride Carbon Dioxide Anion Gap BUN Creatinine Estimated GFR BUN/Creatinine Ratio Glucose Calcium HCG, Quant 3150 H Urine Color Urine Turbidity Urine pH Ur Specific Erhard Urine Protein Urine Glucose (UA) Urine Ketones Urine Blood Urine Nitrite Urine Bilirubin Urine Urobilinogen Ur Leukocyte Esterase Urine WBC (Auto) Urine RBC (Auto) U Epithel Cells (Auto) Urine Mucus Blood Type A POSITIVE Antibody Screen Negative 06/08/17 06/08/17 10:10 10:20 WBC RBC Hgb Hct MCV MCH MCHC RDW Plt Count Lymph % (Auto) [place] % (Auto) Eos % (Auto) Baso % (Auto) Lymph # [place] # Eos # Baso # Seg Neutrophils % Seg Neutrophils # Sodium 137 Potassium 3.9 Chloride 96.9 L Carbon Dioxide 25 Anion Gap 19 BUN 9 Creatinine 0.5 L Estimated GFR > 60 BUN/Creatinine Ratio 18 Glucose 89 Calcium 9.1 HCG, Quant Urine Color Straw Urine Turbidity Clear Urine pH 7.0 Ur Specific Erhard 1.010 Urine Protein <15 mg/dl Urine Glucose (UA) Neg Urine Ketones Tr Urine Blood Mod Urine Nitrite Neg Urine Bilirubin Neg Urine Urobilinogen < 2.0 Ur Leukocyte Esterase Neg Urine WBC (Auto) 1.0 Urine RBC (Auto) 1.0 U Epithel Cells (Auto) < 1.0 Urine Mucus Few Blood Type Antibody Screen - Radiology Data Radiology results: report reviewed (pelvic ultrasound), image reviewed (pelvic ultrasound) Transvaginal and transabdominal OB ultrasound. History: Pelvic pain and vaginal bleeding. Findings: A single intrauterine is identified. The crown-rump length measures 2.1 cm. There is no cardiac activity. There is no evidence of subchorionic hemorrhage. A 2.1 cm in diameter cyst is seen in the right ovary. Minimal free fluid is seen in the right adnexa. Impression: Sonographic evidence of demise. The size of the pole would indicate 8 and one half weeks gestational age. 2. 2.1 cm right ovarian cyst. Transcribed By: MRP Dictated By: NICK ESTRADA MD Electronically Authenticated By: NICK ETSRADA MD Signed Date/Time: 06/08/17 100 DD/ 1006 TD/TT: 06/08/17 1009 Pelvic ultrasound #2 Transabdominal and transvaginal OB ultrasound. History: Passed tissue since previous ultrasound performed earlier today. Findings: Since the previous study today, there has been evacuation of the intrauterine . As expected, there is thickening of the endometrium at 1.5 cm but no gross heterogeneous appearance to suggest retained POC's. The right ovarian cyst is again noted. Impression: No evidence of intrauterine . Transcribed By: MRP Dictated By: NICK ESTRADA MD Electronically Authenticated By: NICK ESTRADA MD Signed Date/Time: 06/08/171408 DD/ 06 TD/TT: 06/08/171408 - Differential Diagnosis threatened , spontaneous Critical care attestation.: If time is entered above; I have spent that time in minutes in the direct care of this critically ill patient, excluding procedure time. ED Disposition Clinical Impression: Spontaneous Disposition: DC- TO HOME OR SELFCARE Is pt being admited?: No Does the pt Need Aspirin: No Condition: Stable Instructions: Spontaneous Miscarriage (ED) Additional Instructions: Return to the emergency department immediately should you develop worsening symptoms, fever, inability to tolerate food or liquid or any other concerns. Prescriptions: HYDROcodone/APAP 5-325 [[place] 5/325] 1 - 2 each PO Q6HR PRN #10 tablet PRN Reason: Pain Ibuprofen [Motrin 800 MG tab] 800 mg PO Q8HR PRN #20 tablet PRN Reason: Pain Referrals: MONISHA MIMS MD [Other] - 2-3 Days Time of Disposition: 15:47
--- NOTE | 2017-06-08 14:25 | Ultrasound Report ---
Transabdominal and transvaginal OB ultrasound. History: Passed tissue since previous ultrasound performed earlier today. Findings: Since the previous study today, there has been evacuation of the intrauterine . As expected, there is thickening of the endometrium at 1.5 cm but no gross heterogeneous appearance to suggest retained POC's. The right ovarian cyst is again noted. Impression: No evidence of intrauterine .
[2017-06-08] MEDS ORDERED: METHERGINE IM ONE (15:45)
== END 2017-06-08 16:45 | disposition home or self-care (01) ==
LOC: ED 07:29
DX: O03.9 Complete or unspecified spontaneous abortion without complication (principal); I10 Essential (primary) hypertension
CPT/HCPCS: 36415; 76801; 76817; 80048; 81001; 84702; 85025; 86850; 86900; 86901; 88305; 96372; 99284; J2210; 88304

== ENCOUNTER 2019-03-03 23:26 | Outpatient (CLI) | payer MEDICAID ==
[2019-03-03 23:41] VITALS: BP 110/59
[2019-03-04] MEDS ORDERED: LACTATED RINGERS 1,000 ML IV SCH (00:14)
== END 2019-03-04 01:59 | disposition home or self-care (01) ==
LOC: TRG 23:26
PROVIDERS: ATTEND Obstetrics & Gynecology
DX: O26.893 Other specified pregnancy related conditions, third trimester (principal); R42 Dizziness and giddiness; Z3A.29 29 weeks gestation of pregnancy
CPT/HCPCS: 59025

== ENCOUNTER 2020-09-25 01:55 | Outpatient (CLI) | payer MEDICAID ==
[2020-09-25 02:32] VITALS: BP 133/76
[2020-09-25] MEDS ORDERED: LACTATED RINGERS 1,000 ML IV ONE (02:48)
[2020-09-25 03:30] LABS: Bacteria,Urine 1+ /HPF (Negative); Bilirubin,Urine NEG (Negative); Blood,Urine NEG (Negative); Color,Urine Yellow (Yellow); Mucus,Urine FEW /HPF; Urobilinogen,Urine < 2.0 mg/dL (<2.0)
[2020-09-25] MEDS ORDERED: ceFAZolin/Water 2 GM/20 ML 2 GM/20 ML SYRINGE IV ONE (03:48)
--- NOTE | 2020-09-25 04:43 | Ultrasound Report ---
US OB limited INDICATION: Blunt trauma to Abdomen - Rule out Abruption. TECHNIQUE: Transabdominal. COMPARISON: None available. FINDINGS: There is a single intrauterine . Heart Rate: 157 beats per minute. Position: breech. Placenta: Posterior fundal. Grade 0. The placenta appears within normal limits. IMPRESSION: 1. No evidence for placental abruption. Signer Name: Gianfranco Bhatti MD Signed: 09/25/2020 4:38 AM Workstation Name: [id number]
== END 2020-09-25 07:58 | disposition home or self-care (01) ==
LOC: TRG 01:55 → APU 02:18 → TRG 07:58
PROVIDERS: ATTEND Obstetrics & Gynecology
DX: O26.893 Other specified pregnancy related conditions, third trimester (principal); R10.30 Lower abdominal pain, unspecified; O32.1XX0 Maternal care for breech presentation, not applicable or unspecified; W19.XXXA Unspecified fall, initial encounter; O99.343 Other mental disorders complicating pregnancy, third trimester; F32.9 Major depressive disorder, single episode, unspecified; F41.9 Anxiety disorder, unspecified; O16.3 Unspecified maternal hypertension, third trimester; O99.213 Obesity complicating pregnancy, third trimester; Z3A.29 29 weeks gestation of pregnancy; Y93.89 Activity, other specified; Y92.89 Other specified places as the place of occurrence of the external cause; Y99.8 Other external cause status
CPT/HCPCS: 76815; 81001; 96361; 96374; J0690; J7120

== ENCOUNTER 2020-10-03 20:40 | Outpatient (CLI) | payer MEDICAID ==
[2020-10-03 23:01] LABS: Hemoglobin 10.8 gm/dl (10.1-14.3); Mean Corpuscular HGB Conc 34 % (30-34); Mean Corpuscular Volume 89 fl (79-97); Platelet Count 191 K/mm3 (140-440); Red Blood Count 3.61 M/mm3 (3.65-5.03); Red Cell Distribution Width 13.8 % (13.2-15.2)
[2020-10-03 23:19] LABS: Alanine Aminotransferase 11 units/L (7-56)
--- NOTE | 2020-10-03 23:48 | Ultrasound Report ---
ULTRASOUND OBSTETRIC LIMITED INDICATION / CLINICAL INFORMATION: EFW and position. Clinical Gestational Age (GA): 30.5 weeks.days COMPARISON: None available. FINDINGS: HEART RATE (beats per minute): 165 PRESENTATION: Cephalic. Estimated weight 1640 g +/- 243 g Averaging uterine age 30 weeks 6 days IMPRESSION: 1. No significant abnormality. Signer Name: Paolo Hopper MD Signed: 10/03/2020 11:43 PM Workstation Name: [id number]
[2020-10-04 04:10] LABS: Uric Acid 4.6 mg/dL (3.5-7.6)
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
[2020-10-04] MEDS: ACETAMINOPHEN 325 MG TAB PO PRN ×2 (07:54→21:25)
[2020-10-04] MEDS: INSULIN REGULAR, HUMAN 100 UNITS/1 ML SUB-Q SCH ×3 (11:15→17:34)
[2020-10-04] MEDS ORDERED: INSULIN NPH SQ SCH (17:00)
[2020-10-04] MEDS ORDERED: INSULIN REGULAR, HUMAN 100 UNITS/1 ML SUB-Q SCH (17:00)
[2020-10-04] MEDS ORDERED: [UNRECOGNIZED DRUG - OTHER] SQ SCH (17:00)
[2020-10-04] MEDS ORDERED: INSULIN NPH, HUMAN 100 UNIT/1 ML SUB-Q SCH (18:00)
[2020-10-04 18:25] LABS: Alanine Aminotransferase 10 units/L (7-56); Albumin 3.6 g/dL (3.9-5); Blood Urea Nitrogen 8 mg/dL (7-17); Calcium 8.7 mg/dL (8.4-10.2); Hemolysis Index 11
[2020-10-04 18:31] LABS: BUN/Creatinine Ratio 16
--- NOTE | 2020-10-04 23:11 | Event Note ---
Date: 10/04/20 Nurse notified me that 24hr prot completed and results 675, therefore pt counseled and discharged home, asymptomatic for headache and to continue control of blood sugar at home with insulin therapy. pt to follow up in clinic within 7days.
[2020-10-04 23:13] VITALS: BP 132/84
--- NOTE | 2020-10-04 23:14 | Discharge Summary ---
Providers - Providers Date of discharge: 10/04/20 Attending physician: KRUNAL RODRIGUEZ MD Primary care physician: KRUNAL RODRIGUEZ MD Hospitalization Reason for admission: other (23hr observation for PIH work up with known gestational diabetes) Hospital course: Antepartum pt at 30+ weeks admitted with 23hr observation for PIH work up and same with mild proteinuria at 675. pt given PIH precaution and pt to continue control of diabetes with insulin. BP remained wnl. Condition at discharge: Fair Disposition: [id number] TO HOME OR SELFCARE Plan - Provider Discharge Summary Additional instructions: [] Smoking cessation referral if applicable(refer to patient education folder for contact #) [] Refer to [facility] Booklet Call your doctor immediately for: * Fever > 100.5 * Heavy vaginal bleeding ( >1 pad per hour) * Severe persistent headache * Shortness of breath * Reddened, hot, painful area to leg or breast * Drainage or odor from incision. * Keep incision clean and dry at all times and follow doctor's instructions reg arding bathing/showering - Follow up plan Follow up: KRUNAL RODRIGUEZ MD [Primary Care Provider] - 7 Days
== END 2020-10-04 23:36 | disposition home or self-care (01) ==
LOC: TRG 20:40 → LD 20:42 → TRG 10-04 23:36
PROVIDERS: ATTEND Obstetrics & Gynecology
DX: Z34.83 Encounter for supervision of other normal pregnancy, third trimester (principal); Z3A.30 30 weeks gestation of pregnancy
CPT/HCPCS: 36415; 59025; 76816; 80053; 82565; 82962; 83615; 84156; 84450; 84460; 84550; 85027; A9270; 76815; J1815